=== PATIENT | male | born 1985 | race Caucasian/White ===

== ENCOUNTER 2016-10-03 18:28 | Emergency (ER) | payer OTHER ==
--- NOTE | 2016-10-03 19:01 | ED ORDER SUMMARY ---
..... Patient: DIGNA WALKER OrderSheet [facility] VisitID: [id number] [address] [place] [address] 31y, M Registration Date/Time: 10/03/2016 ORDER SHEET Weight: 120.6 kg (stated) Allergies: No Known Drug Allergy GENERAL ORDERS: Dress Wounds (18:56 10/03/2016 HBivens A.R.N.P.) (19:08 JSanders R.N.) MEDICATION ORDERS: Tdap IM 0.5 mL (NOW, per protocol) (18:56 10/03/2016 HBivens A.R.N.P.) (19:08 KRISTYanders R.N.) IV FLUIDS: ORDER SHEET NOTES: [Electronically signed by Madeline Zuñiga R.N. (19:19 10/03/2016)] [Electronically signed by Anna EnnisR.N.PDayan (20:16 10/03/2016)] [Electronically locked/signed by Madeline Zuñiga R.N. (19:19 10/03/2016)]
--- NOTE | 2016-10-03 19:01 | ED ORDER SUMMARY ---
..... Patient: DIGNA WLAKER OrderSheet [facility] VisitID: [id number] [address] [place] [address] 31y, M Registration Date/Time: 10/03/2016 ORDER SHEET Weight: 120.6 kg (stated) Allergies: No Known Drug Allergy GENERAL ORDERS: Dress Wounds (18:56 10/03/2016 HBivens A.R.N.P.) (19:08 JSanders R.N.) MEDICATION ORDERS: Tdap IM 0.5 mL (NOW, per protocol) (18:56 10/03/2016 HBivens A.R.N.P.) (19:08 KRISTYanders R.N.) IV FLUIDS: ORDER SHEET NOTES: [Electronically signed by Madeline Zuñiga R.N. (19:19 10/03/2016)] [Electronically signed by Anna EnnisR.N.PDayan (20:16 10/03/2016)] [Electronically locked/signed by Madeline Zuñiga R.N. (19:19 10/03/2016)]
--- NOTE | 2016-10-03 19:01 | ED NURSING NOTES ---
Clinical Report - Nurses [facility] [place] [address] 10/03/2016 18:31 [id number] Triage time 18:45. Acuity: LEVEL 3. 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 18:48 10/03/16. SEPSIS SCREEN: Sepsis Screen. Negative (no infection suspected/documented). DEANNA COMA SCORE: Deanna Coma Scale: 15- eyes open spontaneously (4); best verbal response- oriented x 4 (5); best motor response- obeys commands (6). --18:48 Eldon Mohr R.N. 18:48 10/03/16. BP: 144/89. HR: 65. RR: 16. O2 saturation: 100% on room air. Temp: 97.6 F (oral). Pain level now: 5/10. --18:49 Eldno Mohr R.N. Weight: 120.6 kg stated. Height/Length: 72 inches Per Patient. BMI: 36.1. --18:47 Eldon Mohr R.N. Medications None. --18:46 Eldon Mohr R.N. Allergies No Known Drug Allergy. --18:46 Eldon Mohr R.N. History Arrived by private vehicle. Historian: patient. 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 PAST MEDICAL HX: Tetanus status: unknown. SOCIAL HX: Never smoker. No alcohol use or drug use. ABUSE ASSESSMENT: No report of abuse. --18:48 Eldon Mohr R.N. PROBLEMS: no known problems. ADDITIONAL SURGERIES: no known surgeries. Interventions ID band on patient. To treatment room. --18:48 Eldon Mohr R.N. PHYSICAL ASSESSMENT 18:54 10/03/16. Ambulatory to room. GENERAL / NEURO / PSYCH: Oriented X 4. Alert. Appears in no acute distress. EXTREMITIES: Tip of left middle finger: 1.0 cm laceration; (lac with partial avulsion.). ( bleeding is controlled.). --18:54 Eldon Mohr R.N. NURSING PROGRESS NOTES 18:49 10/03/16. Call light placed in reach. Bed placed in lowest position. Brakes of bed on. Patient ready for evaluation- chart flagged. --18:49 Eldon Mohr R.N. 19:05 10/03/2016 TDAP IM 0.5 mL given. (Lot#: [id number], expiration date: 05/19/2018, Surveying [employer] Rodman: sanofi pasteur). Given in the right deltoid. Allergies verified and confirmed 5 rights. Vaccine information statement provided to the patient. --19:08 Madeline Zuñiga R.N. DISPOSITION / DISCHARGE 19:13 10/03/16. Condition at departure: unchanged. No learning barriers present. Discharge instructions provided and reviewed with the patient. Reviewed wound care instructions. Patient verbalized understanding. Written instructions provided in Serbian. The patient was discharged by the nurse practitioner. He was discharged home. He left the Emergency Department ambulatory and via private vehicle. Patient driving. FALL RISK ASSESSMENT: Fall risk assessment completed. No fall risk identified. --19:13 Madeline Zuñiga R.N. Locked/Released at 10/03/2016 19:19 by Madeline Zuñiga R.N.
--- NOTE | 2016-10-03 19:01 | ED NURSING NOTES ---
Clinical Report - Nurses [facility] [place] [address] 10/03/2016 18:31 [id number] Triage time 18:45. Acuity: LEVEL 3. 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 18:48 10/03/16. SEPSIS SCREEN: Sepsis Screen. Negative (no infection suspected/documented). DEANNA COMA SCORE: Deanna Coma Scale: 15- eyes open spontaneously (4); best verbal response- oriented x 4 (5); best motor response- obeys commands (6). --18:48 Eldon Mohr R.N. 18:48 10/03/16. BP: 144/89. HR: 65. RR: 16. O2 saturation: 100% on room air. Temp: 97.6 F (oral). Pain level now: 5/10. --18:49 Eldon Mohr R.N. Weight: 120.6 kg stated. Height/Length: 72 inches Per Patient. BMI: 36.1. --18:47 Eldon Mohr R.N. Medications None. --18:46 Eldon Mohr R.N. Allergies No Known Drug Allergy. --18:46 Eldon Mohr R.N. History Arrived by private vehicle. Historian: patient. 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 PAST MEDICAL HX: Tetanus status: unknown. SOCIAL HX: Never smoker. No alcohol use or drug use. ABUSE ASSESSMENT: No report of abuse. --18:48 Eldon Mohr R.N. PROBLEMS: no known problems. ADDITIONAL SURGERIES: no known surgeries. Interventions ID band on patient. To treatment room. --18:48 Eldon Mohr R.N. PHYSICAL ASSESSMENT 18:54 10/03/16. Ambulatory to room. GENERAL / NEURO / PSYCH: Oriented X 4. Alert. Appears in no acute distress. EXTREMITIES: Tip of left middle finger: 1.0 cm laceration; (lac with partial avulsion.). ( bleeding is controlled.). --18:54 Eldon Mohr R.N. NURSING PROGRESS NOTES 18:49 10/03/16. Call light placed in reach. Bed placed in lowest position. Brakes of bed on. Patient ready for evaluation- chart flagged. --18:49 Eldon Mohr R.N. 19:05 10/03/2016 TDAP IM 0.5 mL given. (Lot#: [id number], expiration date: 05/19/2018, Manager [employer]: sanofi pasteur). Given in the right deltoid. Allergies verified and confirmed 5 rights. Vaccine information statement provided to the patient. --19:08 Madeline Zuñiga R.N. DISPOSITION / DISCHARGE 19:13 10/03/16. Condition at departure: unchanged. No learning barriers present. Discharge instructions provided and reviewed with the patient. Reviewed wound care instructions. Patient verbalized understanding. Written instructions provided in Prydeinig. The patient was discharged by the nurse practitioner. He was discharged home. He left the Emergency Department ambulatory and via private vehicle. Patient driving. FALL RISK ASSESSMENT: Fall risk assessment completed. No fall risk identified. --19:13 Madeline Zuñiga R.N. Locked/Released at 10/03/2016 19:19 by Madeline Zuñiga R.N.
--- NOTE | 2016-10-03 19:01 | ED CLINICAL REPORT ---
Clinical Report - Physicians/Mid Levels [facility] [address] [place] [address] 10/03/2016 18:31 Patient: DIGNA WALKER Time Seen: 18:42; initial patient contact, initial documentation, patient care assumed. Arrived- By private vehicle. Historian- patient. HISTORY OF PRESENT ILLNESS Chief Complaint: Injury to the left middle finger. The injury happened just prior to arrival. Occurred at work. The patient sustained a laceration from a knife. Patient is experiencing mild pain. Patient denies injury to the head or neck. No other injury. REVIEW OF SYSTEMS The patient sustained a laceration. No swelling, tingling, numbness or weakness. All systems otherwise negative, except as recorded above. PAST HISTORY Negative. The patient's dominant hand is the right. Tetanus immunization status is unknown. SOCIAL HISTORY Never smoker. No alcohol use or drug use. No recent travel. Is a local resident. FAMILY HISTORY No significant family medical history. ADDITIONAL NOTES The nursing notes have been reviewed with agreement regarding the chief complaint, HPI, ROS, PMH and patient medications and allergies. PHYSICAL EXAM Vital Signs: 10/03/2016 18:48 BP: 144/89. HR: 65. RR: 16. O2 saturation: 100%. Temp: 97.6 F. Pain level now: 5/10. Have been reviewed as normal and appear to be correct. Appearance: Alert. Oriented X3. No acute distress. Head: Head atraumatic. Eyes: Pupils equal, round and reactive to light. Eyes normal inspection. Respiratory: No respiratory distress. Skin: Skin warm and dry. Skin intact. Extremities: Hand injury present. Tip of left middle finger: superficial 0.5 cm laceration; (superficial lac, no closure needed, no active bleeding). No erythema, tenderness, swelling, puncture wound or foreign body. No subungual hematoma, nail avulsion, exposed bone or loss of the nail bed on the left middle finger or tip amputation of the left middle finger. No wrist injury. Hand and wrist exam otherwise negative. Extremities otherwise negative. Neuro, Vascular and Tendons: Vascular status intact. Sensation intact. Motor intact. Tendon function intact. Neuro: Oriented X 3. No motor deficit. No sensory deficit. Note: isolated injury to finger. PROGRESS AND PROCEDURES Course of Care: 19:01 10/03/16. L&I paperwork completed. Patient counseled in person regarding the patient's stable condition and diagnosis. 19:00. Differential Diagnosis: Other possible considerations: finger lac, fb, avulsion. Above considerations are based on history and physical exam. Differential diagnosis was discussed with patient. Disposition: Discharged home in good and improved condition (19:01). Condition: good and stable. CLINICAL IMPRESSION Single superficial laceration to the left middle finger.Treatment of laceration not delayed. No infection, foreign body present or left fingernail injury. INSTRUCTIONS Protect wound and keep wound area clean. Soak in warm soapy water twice daily. Apply bacitracin twice daily. Warnings: GENERAL WARNINGS: Return or contact your physician immediately if your condition worsens or changes unexpectedly, if not improving as expected, or if other problems arise. Specifically return if problem worsens. Follow-up: Follow up with your doctor in about three days as needed and for wound check. Call for an appointment. Summary of care provided to patient. Understanding of the discharge instructions verbalized by patient. (Electronically signed by Anna Ennis A.R.N.P. 10/03/2016 20:16)
--- NOTE | 2016-10-03 20:16 | ED MED RECONCILIATION SUMMARY ---
Patient: DIGNA WALKER Medication Reconciliation Report VisitID: [id number] [address] [place] [address] 31y, M Registration Date/Time: 10/03/2016 Weight: 120.6 kg Height/Length: 72 in. BMI: 36.1 ALLERGIES: No Known Drug Allergy The patient's Home Medications are listed below: NONE. The source(s) of the original Home Medication information: Not obtained. The following Medications were given to the patient in the Emergency Department: TDAP [IM] IM 0.5 mL, administered: 10/03/2016 7:05:00 PM The following Medications were prescribed to the patient: None.
--- NOTE | 2016-10-03 20:16 | ED DISCHARGE INSTRUCTIONS ---
Patient: DIGNA WALKER General Instructions [facility] VisitID: [id number] [place] [address] 31y, M Registration Date/Time: 10/03/2016 Single superficial laceration to the left middle finger.Treatment of laceration not delayed. No infection, foreign body present or left fingernail injury. INSTRUCTIONS Protect wound and keep wound area clean. Soak in warm soapy water twice daily. Apply bacitracin twice daily. Warnings: GENERAL WARNINGS: Return or contact your physician immediately if your condition worsens or changes unexpectedly, if not improving as expected, or if other problems arise. Specifically return if problem worsens. Follow-up: Follow up with your doctor in about three days as needed and for wound check. Call for an appointment. Summary of care provided to patient. Understanding of the discharge instructions verbalized by patient. ADDITIONAL INFORMATION Laceration, Extremity (Sutures, Rajeev, Or Tape) A laceration is a cut through the skin. This will usually require stitches (sutures) or rajeev if it is deep. Minor cuts may be treated with surgical tape closures. Home care The following guidelines will help you care for your laceration at home: Keep the wound clean and dry. If a bandage was applied and it becomes wet or dirty, replace it. Otherwise, leave it in place for the first 24 hours, then change it once a day or as directed. If stitches or rajeev were used, clean the wound daily: After removing the bandage, wash the area with soap and water. Use a wet cotton swab to loosen and remove any blood or crust that forms. After cleaning, keep the wound clean and dry. Talk with your doctor before applying any antibiotic ointment to the wound. Reapply the bandage. You may remove the bandage to shower as usual after the first 24 hours, but do not soak the area in water (no swimming) until the stitches or rajeev are removed. If surgical tape closures were used, keep the area clean and dry. If it becomes wet, blot it dry with a towel. The doctor may prescribe an antibiotic cream or ointment to prevent infection. Do not stop taking this medication until you have finished the prescribed course or the doctor tells you to stop. The doctor may also prescribe medications for pain. Follow the doctors instructions for taking these medications. If you have chronic liver or kidney disease or ever had a stomach ulcer or GI bleeding, talk with your doctor before using these medicines. Follow-up care Follow up with your health care provider. Most skin wounds heal within ten days. However, an infection may sometimes occur despite proper treatment. Therefore, check the wound daily for the signs of infection listed below. Stitches and rajeev should be removed within 714 days. If surgical tape closures were used, you may remove them after 10 days, if they have not fallen off by then. Notify your doctor if you notice persistent numbness or weakness in the injured extremity. (Note:A radiologist will review any X-rays that were taken. We will notify you of any new findings that may affect your care.) When to seek medical care Get prompt medical attention if any of these occur: Increasing pain in the wound Redness, swelling, or pus coming from the wound Fever of 100.4F (38C) or higher, or as directed by your health care provider If stitches or rajeev come apart or fall out before your next appointment If the surgical tape closures fall off within seven days, or the wound edges re-open Bleeding not controlled by direct pressure You have been given the following additional information: Laceration, Extrem (Suture, Staple, Or Tape) (Electronically signed by Anna Ennis A.R.N.P. 10/03/2016 20:16)
--- NOTE | 2016-10-03 20:16 | ED MAR SUMMARY ---
..... Medication Administration Record [facility] [address] [place] [address] Patient: DIGNA WALKER Visit ID: [id number] 31y, M Weight: 120.6 kg Height/Length: 72 in BMI: 36.1 ALLERGIES: No Known Drug Allergy Given 19:05 10/03/2016 Madeline Zuñiga R.N. Medication Administered: TDAP [IM], Dose: 0.5 mL IM. Medication Ordered: Tdap IM 0.5 mL (NOW, per protocol).
--- NOTE | 2016-10-03 20:16 | ED MAR SUMMARY ---
..... Medication Administration Record [facility] [address] [place] [address] Patient: DIGNA WALKER Visit ID: [id number] 31y, M Weight: 120.6 kg Height/Length: 72 in BMI: 36.1 ALLERGIES: No Known Drug Allergy Given 19:05 10/03/2016 Madeline Zuñiga R.N. Medication Administered: TDAP [IM], Dose: 0.5 mL IM. Medication Ordered: Tdap IM 0.5 mL (NOW, per protocol).
--- NOTE | 2016-10-03 20:16 | ED MED RECONCILIATION SUMMARY ---
Patient: DIGNA WALKER Medication Reconciliation Report [facility] VisitID: [id number] [address] [place] [address] 31y, M Registration Date/Time: 10/03/2016 Weight: 120.6 kg Height/Length: 72 in. BMI: 36.1 ALLERGIES: No Known Drug Allergy The patient's Home Medications are listed below: NONE. The source(s) of the original Home Medication information: Not obtained. The following Medications were given to the patient in the Emergency Department: TDAP [IM] IM 0.5 mL, administered: 10/03/2016 7:05:00 PM The following Medications were prescribed to the patient: None.
== END 2016-10-03 19:13 | disposition home or self-care (01) ==
LOC: ED SRH 18:28
DX: S61.213A Laceration without foreign body of left middle finger without damage to nail, initial encounter (principal); W26.0XXA Contact with knife, initial encounter; Y92.090 Kitchen in other non-institutional residence as the place of occurrence of the external cause; Y99.0 Civilian activity done for income or pay; Z23 Encounter for immunization